=== PATIENT | female | born 1955 | race Asian ===

== ENCOUNTER 2022-01-10 07:50 | Day surgery (SDC) | payer MEDICARE ==
[~2022-01-10] VITALS: Ht 149.9 cm; Wt 77.0 kg
[2022-01-10 08:35] VITALS: BP 101/32
[2022-01-10] MEDS ORDERED: PHENYLEPHRINE 200 MG/D5%-WATER 250 ML IV ONE (08:42)
[2022-01-10] MEDS ORDERED: DOPamine 400MG/D5W[STANDARD] 250 ML IV ONE (08:42)
[2022-01-10] MEDS ORDERED: PHENYLEPHRINE HCL IN 0.9% NACL 400 MCG/10 ML SYRINGE IVP ONE ×3 (08:42→09:45)
[2022-01-10] MEDS ORDERED: IOHEXOL 300 MG/ML 100 ML VIAL IARTER ONE ×2 (09:00→09:45)
[2022-01-10] MEDS ORDERED: HEPARIN SODIUM 1000 UNITS/NS 1,000 ML IARTER ONE (09:00)
[2022-01-10] MEDS ORDERED: ATROPINE SULFATE 0.1 MG/ML 10 ML SYRINGE IVP ONE (09:00)
[2022-01-10] MEDS ORDERED: LIDOCAINE 1% 30 ML/SOD BICARB 8.4% 4 ML SQ ONE (09:00)
[2022-01-10] MEDS: EPINEPHrine 2 MG in DEXTROSE 5%-WATER 248 ML IV PRN ×2 (09:24→10:39)
[2022-01-10] MEDS ORDERED: HEPARIN SODIUM 1000 UNITS/NS 500 ML ONE ×2 (09:28→10:27)
[2022-01-10] MEDS ORDERED: PHENYLEPHRINE 200 MG/D5%-WATER 250 ML IV PRN (09:30)
[2022-01-10] MEDS ORDERED: EPINEPHrine 1:10,000 [1 MG/10 ML] SYRINGE IVP ONE ×2 (09:45→18:26)
[2022-01-10] MEDS ORDERED: HEPARIN SODIUM,PORCINE 1,000 UNITS/ML 10 ML VIAL IVP ONE ×2 (09:45→10:00)
[2022-01-10 09:51] LABS: BASOPHILS % (AUTO) 0.3 % (0.0-2.0); EOSINOPHILS % (AUTO) 0.2 % (1.0-6.0); NEUTROPHILS # (AUTO) 16.6 K/uL (1.8-7.7)
[2022-01-10 09:55] LABS: HEMATOCRIT 21.8 % (36-46); LYMPHOCYTES # (AUTO) 2.3 K/uL (1.0-4.8); MEAN CORPUSCULAR HEMOGLOBIN 29.8 pg (26.0-34.0); MEAN CORPUSCULAR HGB CONC 30.9 G/dL (31.0-37.0); MEAN CORPUSCULAR VOLUME 97 fL (80-100); MONOCYTES # (AUTO) 1.9 K/uL (0.1-1.0); MONOCYTES % (AUTO) 9.1 % (2.0-9.0); NEUTROPHILS % (AUTO) 79.4 % (40.0-70.0); PLATELET COUNT (AUTO) 335 K/uL (150-450); RED BLOOD CELL COUNT(AUTO) 2.26 MIL/uL (4.00-5.20)
[2022-01-10 09:58] LABS: HEMOGLOBIN 6.7 g/dL (12.0-16.0)
[2022-01-10] MEDS ORDERED: DOPamine 400MG/D5W[STANDARD] 250 ML IV PRN (10:00)
[2022-01-10 10:02] LABS: INR 1.4 (0.9-1.1); PROTHROMBIN TIME 14.5 SEC (9.4-11.6)
[2022-01-10 10:11] LABS: ALBUMIN 2.3 g/dL (3.4-5.0); BILIRUBIN,TOTAL 1.1 mg/dL (0.1-1.0); CALCIUM, TOTAL 8.1 mg/dL (8.8-10.5); CREATININE 4.47 mg/dL (0.60-1.30); MAGNESIUM 3.4 mg/dL (1.80-2.40); POTASSIUM 4.8 mmol/L (3.5-5.1); TOTAL PROTEIN, SERUM 6.6 g/dL (6.4-8.2)
[2022-01-10] MEDS ORDERED: NOREPINEPHRINE 8 MG/D5%-WATER 250 ML IV PRN (10:15)
[2022-01-10 10:17] VITALS: BP 80/50
[2022-01-10] MEDS ORDERED: HEPARIN SODIUM 1000 UNITS/NS 1,000 ML ONE (13:27)
[2022-01-10] MEDS ORDERED: LIDOCAINE/PF 1% 30 ML VIAL ONE (13:27)
[2022-01-10] MEDS ORDERED: SODIUM BICARBONATE 50 MEQ/50 ML VIAL ONE (13:27)
[2022-01-10] MEDS ORDERED: IOHEXOL 300 MG/ML 50 ML VIAL ONE (13:27)
[2022-01-10] MEDS ORDERED: IOHEXOL 300 MG/ML 100 ML VIAL ONE (13:27)
[2022-01-10] MEDS ORDERED: 0.9% SODIUM CHLORIDE 10 ML SYRINGE IVP ONE (18:26)
== END 2022-01-10 10:36 ==
LOC: EMS 07:51 → EDBD 07:51 → CATHLAB 08:30 → UNDOADMIN 09:59 → ICU 09:59 → ICUN 10:00 → ICU 10:00 → CATHLAB 10:36 → UNDODISIN 01-11 16:11
PROVIDERS: ATTEND Internal Medicine
DX: I25.10 Atherosclerotic heart disease of native coronary artery without angina pectoris (principal); I10 Essential (primary) hypertension; I46.9 Cardiac arrest, cause unspecified; E11.9 Type 2 diabetes mellitus without complications; Z79.899 Other long term (current) drug therapy; Z79.01 Long term (current) use of anticoagulants; Z98.890 Other specified postprocedural states
CPT/HCPCS: 80053; 83735; 83880; 84484; 85025; 85610; 85730; 36415; 93458; 92950; 99291; C9600; C1887; C1874; J1265; J1644; J3490 ×2; J7060; J2370; J0171 ×2; Q9967 ×3; 92920; 92928; G0378; J0461